=== PATIENT | female | born 1950 | race Caucasian/White ===

== ENCOUNTER 2016-05-27 06:47 | Day surgery (SDC) | payer OTHER ==
[2016-05-27] VITALS (9 sets, daily range): BP systolic 128–150; BP diastolic 56–70; PULSE 67–86; RESP 14–18; O2SAT 94–100
[~2016-05-27] VITALS: Ht 154.9 cm; Wt 70.0 kg
[2016-05-27] MEDS: Lactated Ringer's 1,000 ML IV SCH ×2 (05:39→08:45)
[~2016-05-27 06:47] MED LIST: AMLO5TAB2 PO; ASCO100089 PO; CALC-846 PO; PHEN32.417 PO
[2016-05-27] MEDS ORDERED: Lidocaine PF 1% 30 mL Inj ONE (06:48)
[2016-05-27] MEDS ORDERED: Dexamethasone 4 mg/mL Inj ONE (06:48)
[2016-05-27] MEDS ORDERED: Rocuronium 10 mg/mL 5 mL Inj ONE (06:48)
[2016-05-27] MEDS ORDERED: fentaNYL-PF 50 mCg/mL 2 mL Inj ONE (06:48)
[2016-05-27] MEDS ORDERED: Propofol 10,000 mCg/mL 20 mL Inj ONE (06:48)
[2016-05-27] MEDS ORDERED: Ondansetron 2 mg/mL 2 mL Inj ONE (06:48)
[2016-05-27] MEDS ORDERED: EPHEDrine/NS 5 mg/mL 5 mL Syringe ONE (06:48)
--- NOTE | 2016-05-27 08:41 | PCM.HPANE ---
Patient Data Date of Service: May 27, 2016 Surgeon Admitting Provider: Attending Provider:Floridalma Bruner MD Primary Care Physician:Leticia Cornelius MD Other Provider:Reilly Knox Anesthesia Reason for Visit Chronic Cholecystitis Ht/WT & BMI Height (Feet): 5 Height (Inches): 1.00 Weight (Kilograms): 69.952 Body Mass Index 29.00 Allergies Coded Allergies: pantoprazole (Verified Allergy, Severe, HIVES, 05/22/16) acetaminophen (Verified Allergy, Unknown, UNKNOWN, 05/22/16) aspirin (Unverified Allergy, Unknown, 05/26/16) ENTERED FROM UNCODED ALLERGIES Uncoded Allergies: ASPIRIN (Generic Allergy) (Allergy, Severe, HIVES, 05/22/16) Past Anesthesia History Anesthesia History: Denies:: Anesthesia Reactions, Malignant Hyperthermia Diabetes History Hx Diabetes?: No MRSA MRSA: No Medications Hypertension Medication: Yes (AMLODIPINE) Home Meds Incl Beta Ijeoma: No Reported Medications Ascorbic Acid (Vitamin C)1,000 Mg Tab.chew1,000 Mg PO DAILY Ref 0 05/22/16 Phenobarbital 32.4 Mg Ephgcd00.2 Mg PO QPM 30 Days 05/22/16 Phenobarbital 32.4 Mg Cgiixo01.8 Mg PO QAM 30 Days 05/22/16 Calcium Carbonate/Mag Hydrox (Antacid Chewable Tablet)1 Each Tab.chew1 Each PO PRN 05/22/16 Amlodipine 5 Mg Tablet5 Mg PO DAILY Ref 0 05/22/16 History History of ENT Problems?: Yes Other HEENT Pertinent History: S/P TONSILLECTOMY Hx of Heart Problems?: Yes Cardiovascular History: Positive for:: Hypertension Denies:: Heart Murmur Hx of Respiratory Problem?: No Respiratory History: Denies:: Use of C-PAP Machine Hx Neurologic Problems?: Yes Neurological History: Positive for:: Headaches Seizures Hx of GI Problems?: Yes Gastrointestinal History: Positive for:: Gall Bladder Disease (CHRONIC CHOLECYSTITIS=CURRENT PROBLEM C/OF RUQ PAIN,DECREASED APPETITE) Other GI Pertinent History: HX IBS Hx of Problems?: Yes Genitourinary History: Positive for:: Urinary Tract Infection (HX OF) Female Hx: Denies:: Currently Skin History: Denies:: History Skin Disorders? Pressure Ulcers Hx Musculoskeletal Problems?: Yes Musculoskeletal History: Positive for:: Osteoarthritis Denies:: Back Injury (C/OF B/L LOWER BACK PAIN/SCIATICA) Hx of Psycho/Social Problems?: No Hx Surgeries?: Yes (SARA/BSO) Hx Any Other Health Problems?: Yes Other History: Denies:: Cancer Endocrine Disease Hospitalization Thyroid Disease Hx Diabetes: No Hx Alcohol Use: Yes (RARELY)Have You Smoked inLast 12 mo: No Stop/Bang S-Snoring: Do You Snore Loudly: No T-Tired: feel tired, fatigued: No O-Obsered: Observed not breath: No P-Blood Pressure: treated: Yes B- Body Mass Index > 35 kg/m2: No A- Age over 50: Yes N- Neck Large Circumference: No G- Gender Male: No GERONIMO Total Score: 2 GERONIMO Risk Assessment: Low Risk, <3 Yes Risk Assessment Category Category 1A: Patient has history of documented sleep apnea, and HAS NOT received any narcotic, sedative or anesthesia administration during this stay. Category 1B: Patient has history of documented sleep apnea, and HAS received any narcotic , sedative or anesthesia administration during this stay Category 2: Patient has SUSPECTED Obstructive Sleep Apnea, and HAS received any narcotic , sedative or anesthesia administration during this stay. Category 3: Patient has SUSPECTED Obstructive Sleep Apnea and HAS NOT received narcotic, sedative or anesthesia administration during this stay. Category 4: Outpatient in Procedural Areas with known sleep apnea or who screen positive for High Risk via the STOP/BANG questionnaire. Exam Exam Vital Signs Vital Signs Date Time Temp Pulse Resp B/P Pulse Ox O2 Delivery O2 Flow Rate FiO2 05/27/16 07:46 36.6 67 16 150/69 96 Room Air General Appearance: Alert, Oriented X3, Cooperative, No Acute Distress HEENT/AIRWAY: MP 3 Lungs: Normal Air Movement Heart: Exam Unremarkable Meds/Labs/Diagnostics Admission Meds Current Medications Lactated Ringer's (Lr) 1,000 ml @ 120 mls/hr Q8H20M IV Last administered on t 05:39; Start 05/27/16 at 05:00; Stop 05/27/16 at 13:19 Plan Impression Patient chart reviewed, patient interviewed and anesthestic plan with risks, benefits, and alternatives discussed, and informed consent obtained. NPO Status: 05/26 at 2330 ASA Physical Status: ASA2 Mod Systemic Disease Anesthetic Plan: GA Bene/Risks/Altern/Consents: Yes HP Complete Prior to Induction: Yes Sergei Romeo MD May 27, 2016 07:54
[2016-05-27] MEDS ORDERED: Bupivacaine-MPF 0.5% W/EPI 30 mL Inj INFILTRATE ONE (08:45)
[2016-05-27] MEDS ORDERED: Lactated Ringer's 500 ML IV PRN (09:19)
[2016-05-27] MEDS ORDERED: Lactated Ringer's 1,000 ML IV SCH (09:19)
[2016-05-27] MEDS ORDERED: EPHEDrine Sulfate 50 mg/mL Inj IVPUSH PRN (09:20)
[2016-05-27] MEDS ORDERED: HYDROmorphone 1 mg/mL Inj IVPUSH PRN (09:20)
[2016-05-27] MEDS ORDERED: Labetalol 5 mg/mL 4 mL Inj IV PRN (09:20)
[2016-05-27] MEDS ORDERED: Phenylephrine 10,000 mCg/mL Inj IVPUSH PRN (09:20)
[2016-05-27] MEDS ORDERED: fentaNYL-PF 50 mCg/mL 2 mL Inj IVPUSH PRN (09:20)
[2016-05-27] MEDS ORDERED: Ondansetron 2 mg/mL 2 mL Inj IVPUSH PRN (09:20)
[2016-05-27] MEDS ORDERED: MetoCLOpramide 5 mg/mL 2 mL Inj IVPUSH PRN (09:20)
[2016-05-27] MEDS ORDERED: Dexamethasone 4 mg/mL Inj IVPUSH PRN (09:20)
[2016-05-27] MEDS ORDERED: Atropine 0.4 mg/mL Inj IVPUSH PRN (09:20)
--- NOTE | 2016-05-27 10:20 | PCM.ANEP1 ---
Post Anesthesia Phase 1 PACU Phase 1 Assessment Date of Service: May 27, 2016 Vital Signs Vital Signs Date Time Temp Pulse Resp B/P Pulse Ox O2 Delivery O2 Flow Rate FiO2 05/27/16 10:15 73 17 138/61 100 Simple Mask 8 05/27/16 10:10 69 14 128/60 100 Simple Mask 8 05/27/16 10:05 36.2 71 15 133/60 100 Simple Mask 8 05/27/16 07:46 36.6 67 16 150/69 96 Room Air Anesthetic Administered: GA Level of Alertness: Drowsy, not talking Pain: No Nausea or Vomiting: No Airway Device: Oralpharangeal Airway Oxygen Delivery: Simple Mask Lungs: Normal Air Movement Sergei Romeo MD May 27, 2016 10:20
--- NOTE | 2016-05-27 10:22 | PCM.SURGOP ---
Surgical Operative Report Date of Service: May 27, 2016 Pre Operative Diagnosis Chronic cholecystitis Post Operative Diagnosis Chronic cholecystitis Procedure: Laparoscopic cholecystectomy with intraoperative cholangiogram, with interpretation Surgeon and Water Project Engineer: Surgeon: Floridalma Bruner M.D. Assistants: Monroe Gutierrez PA-C; Braydon Holloway MS3 An it assistant was necessary for retraction. Indication for Procedure This is a 65-year-old woman with intermittent right upper quadrant pain. In January 2016 she underwent abdominal ultrasound on an outpatient basis which had been ordered by her PCP, revealing gallstones, gallbladder wall thickening, and a sonographic Miller's sign. She was consented for laparoscopic cholecystectomy. Findings: 1. Moderately inflamed gallbladder with edema. 2. Intraoperative cholangiogram demonstrated a moderate length cystic duct, suggestion of nonocclusive sludge, and adequate visualization of the right and left hepatic ducts, common hepatic duct, common bile duct, with good filling of the duodenum. Procedure Details The patient was brought to the operating room and placed in supine position. General endotracheal anesthesia was smoothly induced. Antibiotics were infused. A warming blanket and SCDs were placed. A foot board was placed. The operative field was prepped and draped in sterile fashion. A pause was performed to confirm the correct patient, procedure, site, and side. A transverse 10 mm incision was made just below the umbilicus. The abdomen was entered under direct vision using a Howard port. Three additional 5 mm ports were placed in the epigastrium and right upper quadrant. The gallbladder was identified and lifted cephalad. There was moderate edema surrounding the gallbladder due to her cholecystitis. Dissection then proceeded to identify the cystic duct and to expose the lower one-third of the cystic plate. The cystic artery was not identified near the cystic duct, and it appeared to be obliterated by surrounding inflammation. Once there was only one structure entering the gallbladder, a clip was placed on the gallbladder side of the cystic duct. A ductotomy was made and a cholangiocatheter was inserted. A cholangiogram was performed and the cystic duct was moderate in length and patent with normal filling of the common hepatic duct, common bile duct, and right and left hepatic ducts, as noted above. There was a suggestion of sludge but no stones within the common bile duct, which was nonocclusive, and contrast flowed easily into the duodenum. The cholangiocatheter was then removed, two clips were placed on the cystic duct and it was divided. The gallbladder was then removed from its bed on the liver with electrocautery. Prior to completely removing the gallbladder, a final look was taken at the stump of the cystic artery and cystic duct, and there was no bleeding or bile leak. The gallbladder was then fully removed from the liver and placed in an EndoCatch bag and removed. The three 5 mm ports were removed under direct vision, the 10 mm mid abdominal port was removed , and a [id number] 0 PDS was used to close the fascia. There was no fascial defect at the end of the case. 0.5% Marcaine with epinephrine was infused at all port sites for postoperative analgesia. The skin was closed with subcuticular 4-0 Monocryl. Sterile dressings were placed. Sponge, instrument, and needle counts were correct at the end of the procedure. The patient was awakened from general anesthesia and taken to the postoperative care unit in good condition. Complications There were no periprocedural complications identified. Surgical Specimen Removed: Yes Specimen sent to Pathology: Yes Surgical Specimen description: Gallbladder Anesthetic Plan: GA Grafts, Implants: None Output, Estimated Blood Loss: 2 (ml) Blood Administration during garcia: No Floridalma Bruner MD May 27, 2016 10:22
--- NOTE | 2016-05-27 10:34 | DRSVH ---
PROCEDURE: X-RAY OPERATIVE CHOLANGIOGRAM ([id number]) INDICATIONS: C-ARM SURGERY ASSIST COMPARISON: None. FINDINGS: Biliary ducts: The surgeon injected contrast into the biliary ducts after cannulation of the cystic duct stump. Visualized intra- and extrahepatic bile ducts are normal in caliber, without strictures. There is incomplete filling of left intrahepatic bile ducts. No intraluminal filling defects to suggest retained ductal stones or sludge. No evidence for iatroge emeka ductal injury. Duodenum: Contrast flows promptly through the sphincter of Oddi into the duodenum, which appears nor mal in caliber. IMPRESSION: Expected intraoperative appearance Dictated by: Bob Hodges M.D. on 05/27/2016 at 10:31 Approved by: Bob Hodges M.D. on 05/27/2016 at 10:32
[2016-05-27] MEDS ORDERED: Lactated Ringer's 1,000 ML IV ONE (10:41)
--- NOTE | 2016-05-27 10:46 | PCM.ANEP2 ---
Post Anesthesia Evaluation ASA/CMS Post Anesthesia Date of Service: May 27, 2016 VS in Patient's Normal Range?: Yes Resp Stable; Airway Patent?: Yes CV Function & Hydration Stable: Yes Mental Status Recovered?: Yes Pain control Satisfactory?: Yes N/V Control Satisfactory?: Yes Sergei Romeo MD May 27, 2016 10:46
--- NOTE | 2016-06-01 13:56 | PATH ---
SURGICAL PATHOLOGY Attending Physician:Floridalma Bruner MD CASE STATUS: Signed Out PATIENT NAME: MYRON ROSE PID: [id number] : 1950 DATE COLLECTED:05/27/2016 17:06 SPECIMEN: Gallbladder CLINICAL HISTORY: CHRONIC CHOLECYSTITIS 1). GALLBLADDER FINAL DIAGNOSIS: Gallbladder: Cholelithiasis with associated chronic cholecystitis and focal cholesterolosis. ICD10 K80.66 GROSS DESCRIPTION: The specimen is received in one formalin filled container and identification confirmed per client, sublabeled "gallbladder" is an intact 7.5 x 3.0 x 3.0 CM gallbladder. The serosa is smooth. The wall is 0.2-0.3 CM in thickness. The mucosa is a dark green in color. The lumen contains a dark green mucoid material and 2 light yellow-green calculus which range in size from 0.1-0.7 CM in greatest dimension. 5 administrative representative sections are submitted in one cassette. 05/28/2016 [facility] ICD-9 CODES: CPT CODES: 1: [id number] Electronically Signed Out Declan Avery MD [facility] [address], [place] [address] Technical component performed at [facility], [address] [place] [address] Ave[address], [place], [address]
== END 2016-05-27 23:59 | disposition home or self-care (01) ==
LOC: SAS 06:47
PROVIDERS: ATTEND Surgery
PROC: BF001ZZ Plain Radiography of Bile Ducts using Low Osmolar Contrast (ICD-10-PCS; 2016-05-27)
PROC: 0FT44ZZ Resection of Gallbladder, Percutaneous Endoscopic Approach (ICD-10-PCS; principal; 2016-05-27 09:00)
DX: K80.10 Calculus of gallbladder with chronic cholecystitis without obstruction (principal); I10 Essential (primary) hypertension; G40.909 Epilepsy, unspecified, not intractable, without status epilepticus
CPT/HCPCS: 47563; 74300; 88304; J1100; J2250; J2405; J3010; J7120; Q9967